=== PATIENT | female | born 1980 | race Caucasian/White ===

== ENCOUNTER 2024-06-28 19:29 | Emergency (ER) | payer OTHER ==
[~2024-06-28] VITALS: Ht 162.6 cm; Wt 68.0 kg
[2024-06-28 19:33] VITALS: BP 124/84; TEMP 97.7; O2SAT 98
[2024-06-28] MEDS ORDERED: AMOX500C PO (21:20)
[2024-06-28] MEDS: AMOXICILLIN 500 MG CAP PO ONE (21:31)
== END 2024-06-28 21:35 | disposition home or self-care (01) ==
LOC: M ED 19:29
DX: J18.1 Lobar pneumonia, unspecified organism (principal); Z79.2 Long term (current) use of antibiotics